=== PATIENT | female | born 1990 | race Two or more races ===

== ENCOUNTER 2018-04-21 15:44 | Emergency (ER) | payer OTHER ==
[~2018-04-21] VITALS: Ht 172.7 cm; Wt 74.4 kg
[~2018-04-21 15:44] MED LIST: CLEOCIN HCL300 MG PO; DOLOGESIC CAPLE1 TAB PO; IRON1TAB4 PO; MACROBID 100 M100 MG PO; PRENATAL + DHA1 EAC1 PO; ZITHROMAX500 MG PO
== END 2018-04-21 20:16 | disposition home or self-care (01) ==
LOC: ER 15:44
DX: N93.8 Other specified abnormal uterine and vaginal bleeding (principal); N83.291 Other ovarian cyst, right side

== ENCOUNTER 2025-01-29 18:50 | Emergency (ER) | payer OTHER ==
[~2025-01-29] VITALS: Ht 172.7 cm; Wt 85.3 kg
[2025-01-29] MEDS ORDERED: ACETAMINOPHEN 500 MG GEL..CAP PO ONE (21:30)
[2025-01-29] MEDS ORDERED: 8 HOUR650 MG PO (22:45)
== END 2025-01-29 22:55 | disposition home or self-care (01) ==
LOC: ER 18:53
DX: S09.8XXA Other specified injuries of head, initial encounter (principal); W22.8XXA Striking against or struck by other objects, initial encounter; Y93.89 Activity, other specified; Y92.89 Other specified places as the place of occurrence of the external cause; Z88.0 Allergy status to penicillin